=== PATIENT | female | born 2000 | race Hispanic/Latino ===

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

== ENCOUNTER 2023-04-23 17:20 | Emergency (ER) | payer BC ==
[2023-04-23] MEDS ORDERED: Ipratropium/Albuterol 3 ML NEB ONE (20:59)
[2023-04-23] MEDS ORDERED: Dexamethasone 10 MG/ML VIAL ONE (21:01)
== END 2023-04-23 22:01 | disposition home or self-care (01) ==
LOC: ERS 17:20
DX: U07.1 COVID-19 (principal); J45.901 Unspecified asthma with (acute) exacerbation; Z79.899 Other long term (current) drug therapy
CPT/HCPCS: 71045; 99283; J1100; J7620